=== PATIENT | female | born 2000 | race Caucasian/White ===

== ENCOUNTER 2022-06-19 18:08 | Emergency (ER) | payer BC, SELFPAY ==
[2022-06-19] VITALS (14 sets, daily range): BP systolic 99–113; BP diastolic 64–83; PULSE 67–96; RESP 15–20; TEMP 36.4; O2SAT 95–99
[2022-06-19 18:47] LABS: Basophils Absolute Auto 0.1 K/mm3 (0.0-0.1); Eosinophils Absolute Auto 0.1 K/mm3 (0-0.3); Hematocrit 45.6 % (37.0-47.0); Hemoglobin 15.8 g/dL (12.0-15.0); Immature Granulocyte Absolute 0.02 K/mm3 (0.00-0.031); Immature Granulocyte Percent A 0.2 % (0-0.5); Lymphocytes Absolute Auto 1.89 K/mm3 (0.9-3.2); Lymphocytes Percent Auto 22.9 % (18.3-44.2); Mean Corpuscular HGB Conc 34.6 g/dl (32-36); Mean Corpuscular Hemoglobin 29.8 pg (26-34); Mean Corpuscular Volume 85.9 fl (80-100); Mean Platelet Volume 9.1 fl (7.4-10.4); Monocytes Absolute Auto 0.5 K/mm3 (0.1-0.6); Monocytes Percent Auto 5.4 % (2.6-8.5); Neutrophils Absolute Auto 5.8 K/mm3 (1.3-6.7); Neutrophils Percent Auto 69.5 % (45.5-73.1); Platelet Count Result 361 k/mm3 (150-375); Red Blood Count 5.31 M/mm3 (4.2-5.4); Red Cell Distribution Width 12.4 % (11.5-14.5); White Blood Count 8.3 K/mm3 (4.5-10.0)
[2022-06-19 19:01] LABS: Alanine Aminotransferase 21 U/L (6-35); Albumin Level 5.4 g/dL (3.5-5.1); Alkaline Phosphatase 83 U/L (38-126); Anion Gap 14 mmol/L (8-16); Aspartate Amino Transferase 35 U/L (14-36); Bilirubin,Total 0.3 mg/dL (0.2-1.3); Blood Urea Nitrogen 28 mg/dL (7-17); Calcium 9.5 mg/dL (8.4-10.2); Carbon Dioxide 29 mmol/L (22-30); Chloride 97 mmol/L (98-107); Estimated CRCL calculation 88 ml/min; Estimated Glomerular Filt Rate > 60; Glucose 100 mg/dL (65-110); Lipase 125 U/L (23-300); Potassium 4.5 mmol/L (3.4-5.0); Sodium 140 mmol/L (137-145)
--- NOTE | 2022-06-19 20:16 | PC.NURSE ---
Pt resting upright in stretcher with parent at bedside. Vitals stable at this time.
[2022-06-19 20:31] LABS: Appearance Urine Clear (Clear); Bilirubin Urine Negative (Negative); Blood Urine Negative (Negative); Color Urine Yellow (Yellow); Glucose Urine UA Negative (Negative); Ketones Urine Negative (Negative); Leukocyte Esterase Ur Negative LEU/UL (Negative); Nitrate Urine Negative (Negative); Protein Urine 2+ mg/dL (Negative); Urobilinogen Urine 0.2 mg/dL (<2.0); pH Urine 6.5 (5.0-9.0)
[2022-06-19 20:36] LABS: RBC Urine 0-2 /hpf (0-2); Squamous Epithelial Cell Urine Occasional /hpf (Few); WBC Urine 0-3 /hpf
[2022-06-19 20:44] LABS: Add Urine Microscopic? YES
--- NOTE | 2022-06-19 21:05 | ED.ABDPAIN ---
HPI - Abdominal Pain General Chief Complaint: Abdominal Pain Stated Complaint: Abd pain Time Seen by Provider: 06/19/22 20:10 History of Present Illness HPI narrative: Pt is a 21 y/o female, PMHx of IBS and recurrent dyspepsia/bloating presents to ED via POV with C/O recent UTI two weeks ago; for which she completed oral abx and felt her urinary burning has improved however, she continues to have bloating and now, for the past 5 days, she has felt pressure where her ovaries are . She contacted her [facility] but wasn't able to secure an appointment until June. She denies associated fevers but reports WOOTEN, fatigue, malaise, nausea, bloating that worsens with certain foods such as salty or sweet snacks/meals and she has constipation and diarrhea from time to time-ongoing for hours. She denies known sick contacts, no covid exposures. she is not and denies new sexual partners or STI risk. Related Data Allergies Allergy/AdvReac Type Severity Reaction Status Date / Time No Known Allergies Allergy Verified 06/19/22 20:09 Review of Systems Constitutional: Comments: refer to HPI Gastrointestinal: Comments: refer to HPI Exam Const: General: healthy appearing, no acute distress and alert HENMT: Head: normal to inspection General nose exam: Normal external nose present Mouth: Yes Normal oral and palatal mucosa present Eyes: Conjunctivae: conjunctivae normal Pupils: Equal, round and reactive pupils present EOM: EOMs intact bilaterally Neck: Neck: normal visual inspection, no lymphadenopathy and no meningeal signs Chest: Chest palpation & inspection: normal inspection of the chest Resp: Effort & Inspection: normal respiratory effort Auscultation: clear to auscultation bilaterally Cardio: Rate: regular rate Rhythm: regular rhythm GI: GI Palp: Yes Soft to palpation Other: no rebound TTP, no palpable mass, no focal tenderness or suprapubic mass Back/Spine/Pelvis: Other: no CVA TTP Skin: General skin exam: normal color Rashes: no rashes Wounds: no wounds Neuro: General: patient oriented x3, moves all extremities, no meningeal signs, no focal motor deficits and CN's II-XI intact bilaterally Extrem: General: normal to inspection, no clubbing, cyanosis or edema and no pedal edema Psych: Mental Status: mental status grossly normal Affect: normal affect Course Course Emergency Course: Lab work up is unremarkable, all complaints are ongoing for months with exception of pelvic discomfort that has been present for one week, described as pressure, without symptoms concerning acute pathology such as torsion or ectopic . LMP one week ago, may be ovulation related. Plan to add covid testing on, discharging to FU with [facility] as planned and gastroenterology is also encouraged for FU given ongoing GI symptoms. Pt is agreeable with plan. Vital Signs Vital signs: Vital Signs Temperature 36.4 C 06/19/22 18:21 Pulse Rate 78 06/19/22 18:21 Respiratory Rate 20 06/19/22 18:21 Blood Pressure 99/64 L 06/19/22 18:21 Pulse Oximetry 99 06/19/22 18:21 Oxygen Delivery Room Air 06/19/22 18:21 Temperature 36.4 C 06/19/22 18:21 Pulse Rate 79 06/19/22 20:11 Respiratory Rate 18 06/19/22 20:11 Blood Pressure 113/76 06/19/22 20:11 Pulse Oximetry 99 06/19/22 20:11 Oxygen Delivery Room Air 06/19/22 18:21 MDM - Abdominal Pain MDM Narrative Medical decision making narrative: covid test is negative, all other laboratories are unremarkable. Plan to discharge home with GI referral, FU with OBGYN as planned, sooner if possible. Pt is agreeable with plan. Differential Diagnosis Differential diagnosis: Likely abdominal pain and other (IBS, UTI, ovulation, covid, URI) Lab Data Result diagrams: 06/19/22 18:41 06/19/22 18:41 Labs: Lab Results 06/19/22 06/19/22 06/19/22 Range/Units 18:41 18:41 20:04 WBC 8.3 (4.5-10.0) K/mm3 RBC 5.31 (4.2-5.4) M/m
[2022-06-19 21:50] LABS: EDCOVIDSCREEN Negative (Negative)
== END 2022-06-19 22:12 | disposition home or self-care (01) ==
PROVIDERS: Emergency Medicine; Emergency Provider Nurse Practitioner Family
DX: K58.9 Irritable bowel syndrome, unspecified (principal); Z20.822 Contact with and (suspected) exposure to COVID-19
CPT/HCPCS: 36415; 80053; 81001; 81025; 83690; 85025; 87426; 99283; C9803

== ENCOUNTER → 2022-07-17 12:55 | Outpatient (CLI) | payer BC, SELFPAY ==
--- NOTE | ~2022-07-17 | US_ITS ---
EXAMINATION: US pelvic complete w TV DATE: 07/17/2022 13:59 INDICATION: Pelvic pain Comparison:No prior studies for comparison. TECHNIQUE: Multiple transabdominal and endovaginal sonographic images of the pelvis performed. FINDINGS: The uterus measures 5.7 x 2 x 2.5 cm. The endometrial complex measures 4 mm. The right ovary measures 3.7 x 1.6 x 1.6 cm and the left ovary measures 2.4 x 1.4 x 1.2 cm. There ar e small follicles in each ovary. Normal doppler signal in both ovaries. There is no free fluid in the pelvis. There are no abnormal masses seen on either side. IMPRESSION: 1. Unremarkable pelvic ultrasound. Reviewed, dictated and finalized at location A.
== END ==
LOC: EXPGOSHRAD 12:57
PROVIDERS: PCP Emergency Medicine; Visit Provider Emergency Medicine
DX: R10.2 Pelvic and perineal pain (principal)
CPT/HCPCS: 76830; 76856

== ENCOUNTER 2022-08-23 01:12 | Day surgery (SDC) | payer BC, SELFPAY ==
[2022-08-15 14:05] VITALS: BMI 25.3
[2022-08-23 08:00] VITALS: BP 118/69; PULSE 93; RESP 18; TEMP 36.3; O2SAT 99
[2022-08-23] MEDS: LACTATED RINGERS 1,000 ML 150 ML IV CONT (08:22)
--- NOTE | 2022-08-23 08:50 | SUR.PREOP ---
per anesthesia, case delay for 2 hrs due to pt drinking before arrival
--- NOTE | 2022-08-23 09:58 | WPDANESEPPF ---
Anes - Initial Pre Proc Eval Procedure: Operation Date: 08/23/22 09:15 Proposed Procedures p Esophagogastroduodenoscopy & Colonoscopy - Neftali Ponce MD Date/Time: 08/23/22 09:58 Surgeon: Neftali Ponce MD Pre Op Diagnosis: bloating, GERD, IBS, early satiety Patient Data Age: 21 Gender: F Height: 1.63 m Weight: 65.3 kg Last Vital Signs Temp 97.3 F L 08/23/22 08:00 Pulse 93 08/23/22 08:00 Resp 18 08/23/22 08:00 BP 118/69 08/23/22 08:00 Pulse Ox 99 08/23/22 08:00 O2 Del Method Room Air 08/23/22 08:00 Allergies Allergy/AdvReac Type Severity Reaction Status Date / Time DAIRY AdvReac Severe Gastrointestinal Uncoded 08/23/22 07:58 Upset Home Medications Medication Instructions Recorded Confirmed Type escitalopram oxalate 10 mg tablet 10 mg PO DAILY 07/20/22 08/15/22 History (Lexapro) amitriptyline 25 mg tablet 50 mg PO HS 08/15/22 08/15/22 History Patient hx anesthesia problems: none Family hx anesthesia problems: none Results Review: All pre-operative results and documents have been reviewed as part of the pre-operative evaluation. [facility] Social History Social History (Updated 07/20/22 @ 10:26 by Esha aKy MA) Smoking status: Never smoker Alcohol intake: never Substance use: never Substance use type: does not use Living arrangements: with family Gender identity (if verbalized by the patient): Female Spiritual care concerns: No Anes - Eval Final PreProcedure Day of Procedure 08/23/22 09:58 Patient weight: normal Heart: regular rate and rhythm Lungs: clear to auscultation Airway: Mallampati scale class II Neurological: alert and oriented Last oral intake: >/= 8 hours ASA classification: II Emergent: no Anesthetic plan: proceed Anesthesia type and monitoring: general GIVS and standard monitoring Results Review: All pre-operative results and documents have been reviewed as part of the pre-operative evaluation. Informed Consent: The patient's anesthetic plan and its attendant risks and benefits were discussed with the patient/family/POA. Questions were solicited and answers provided to the satisfaction of the patient/family/POA.
--- NOTE | 2022-08-23 10:04 | PM.HPGS ---
History of Present Illness History of Present Illness Consent: Risks, benefits, and alternatives have been discussed and questions answered. Patient agrees to proceed with procedure. Chief complaint: bloating, GERD, IBS, early satiety Narrative: Aubrie Cruz is a 21 year old female with bloating and discomfort after eating, diagnosed with ibs and using amitriptyline which is helping but never had scopes. Father has crohn's. Review of Systems Constitutional: Constitutional: Denies headache(s) and Denies weakness Eyes: Eyes: Denies blurry vision ENT: Reports Normal hearing present, Denies headache(s) and Denies neck pain Cardiovascular: Cardiovascular: Denies chest pain and Denies dyspnea Respiratory: Respiratory: Denies dyspnea Gastrointestinal: Gastrointestinal: Reports no additional gastrointestinal complaints Genitourinary: Genitourinary: Denies dysuria Musculoskeletal: Musculoskeletal: Denies neck pain Integumentary/Breasts: Skin/Breast: Denies dry skin Neurologic: Reports Normal hearing present, Denies headache(s) and Denies weakness Psychiatric: Psychiatric: Denies anxiety Endocrine: Endocrine: Denies change in body appearance Hematologic/Lymphatic: Hematologic/Lymphatic: Denies easy bleeding Allergic/Immunologic: Allergic/Immunologic: Denies urticaria PMFSH Past Medical History Medical History (Updated 08/23/22 @ 10:05 by Neftali Ponce MD) Bloating Social History Social History (Updated 07/20/22 @ 10:26 by Esha Kay MA) Smoking status: Never smoker Alcohol intake: never Substance use: never Substance use type: does not use Living arrangements: with family Gender identity (if verbalized by the patient): Female Spiritual care concerns: No Meds Home Medications and Allergies Home Medications Medication Instructions Recorded Confirmed Type escitalopram oxalate 10 mg tablet 10 mg PO DAILY 07/20/22 08/15/22 History (Lexapro) amitriptyline 25 mg tablet 50 mg PO HS 08/15/22 08/15/22 History Allergies Allergy/AdvReac Type Severity Reaction Status Date / Time DAIRY AdvReac Severe Gastrointestinal Uncoded 08/23/22 07:58 Upset Vital Signs Vital Signs - 24 hr 08/23/22 08:00 Temperature 97.3 F L Pulse Rate 93 Respiratory Rate 18 Blood Pressure 118/69 Pulse Oximetry 99 Oxygen Delivery Room Air Exam Const: General: comfortable and no acute distress HENMT: Face/Nose/Sinus: Normal nares present Eyes: General: appearance normal, both eyes and all related structures Neck: Neck: no JVD Resp: Auscultation: clear to auscultation bilaterally Cardio: Rate: regular rate Rhythm: regular rhythm GI: Inspection: non-distended GI Palp: Yes Soft to palpation Skin: General skin exam: normal color Neuro: General: gait normal Speech: normal speech Extrem: General: normal to inspection Psych: Mental Status: mental status grossly normal Assessment and Plan Assessment and plan (1) Bloating: Code(s): R14.0 - Abdominal distension (gaseous) Status: Acute Assessment and Plan: egd with bx (2) Irritable bowel syndrome: Code(s): K58.9 - Irritable bowel syndrome without diarrhea Status: Inactive Assessment and Plan: colonoscopy
--- NOTE | 2022-08-23 10:23 | SUR.OPER ---
egd stopped at 1018, colonoscopy started at 1023.
[2022-08-23 10:37] VITALS: BP 74/40; PULSE 75; RESP 26; O2SAT 98
[2022-08-23 10:47] VITALS: BP 85/50; PULSE 69; RESP 22; O2SAT 100
[2022-08-23 10:57] VITALS: BP 101/55; PULSE 67; RESP 19; O2SAT 100
== END 2022-08-23 11:07 | disposition home or self-care (01) ==
PROVIDERS: PCP Emergency Medicine; Visit Provider Internal Medicine Gastroenterology
PROC: 0DJ08ZZ Inspection of Upper Intestinal Tract, Via Natural or Artificial Opening Endoscopic (ICD-10-PCS; CPT 43235; principal; 2022-08-23 09:15)
DX: K58.9 Irritable bowel syndrome, unspecified (principal); R14.0 Abdominal distension (gaseous)
CPT/HCPCS: 45378; 43239; 88305; J2704; J7120

== ENCOUNTER 2023-03-21 22:00 | Emergency (ER) | payer OTHER, SELFPAY ==
--- NOTE | ~2023-03-21 | CT_ITS ---
CT of the Abdomen and Pelvis: Indication: Abdominal pain Technique: 2.5 mm axial scans were obtained through the abdomen and pelvis following intravenous adm inistration of 100 cc of Omnipaque 350. Dose reduction technique was used on this scan by utilizing a utomated exposure control and iterative reconstruction technique. The dose-length product (DLP) was 3 26.28 mGy-cm. Findings: Scans through the lung bases are unremarkable. The liver, spleen, pancreas, gallbladder, adrenals and kidneys are within normal limits. No evidence of aortic aneurysm. No lymphadenopathy. No bowel obstruction or bowel wall thickening. There is no evidence to suggest acute appendicitis. Images through the pelvis were performed. Urinary bladder unremarkable. No adnexal mass seen. No asci salina. Impression: No significant abnormalities seen. Reviewed, dictated and finalized at [facility]. Impression: No significant abnormalities seen.
[2023-03-21 22:06] VITALS: BP 126/78; PULSE 88; RESP 18; TEMP 36.4; O2SAT 100
[2023-03-21 22:54] LABS: Basophils Absolute Auto 0.1 K/mm3 (0.0-0.1); Basophils Percent Auto 0.6 % (0.2-1.2); Eosinophils Absolute Auto 0.8 K/mm3 (0-0.3); Eosinophils Percent Auto 9.4 % (0-4.4); Hematocrit 42.9 % (37.0-47.0); Hemoglobin 15.2 g/dL (12.0-15.0); Immature Granulocyte Absolute 0.02 K/mm3 (0.00-0.031); Immature Granulocyte Percent A 0.3 % (0-0.5); Lymphocytes Absolute Auto 1.79 K/mm3 (0.9-3.2); Lymphocytes Percent Auto 22.4 % (18.3-44.2); Mean Corpuscular HGB Conc 35.4 g/dl (32-36); Mean Corpuscular Hemoglobin 29.5 pg (26-34); Mean Corpuscular Volume 83.3 fl (80-100); Mean Platelet Volume 8.8 fl (7.4-10.4); Monocytes Absolute Auto 0.6 K/mm3 (0.1-0.6); Neutrophils Absolute Auto 4.7 K/mm3 (1.3-6.7); Neutrophils Percent Auto 59.3 % (45.5-73.1); Platelet Count Result 298 k/mm3 (150-375); Red Blood Count 5.15 M/mm3 (4.2-5.4); Red Cell Distribution Width 12.1 % (11.5-14.5)
[2023-03-21 22:58] LABS: Appearance Urine Cloudy (Clear); Bacteria Urine Rare /hpf; Bilirubin Urine Negative (Negative); Blood Urine Negative (Negative); Color Urine Yellow (Yellow); Glucose Urine UA Negative (Negative); Ketones Urine Negative (Negative); Leukocyte Esterase Ur 1+ LEU/UL (Negative); Nitrate Urine Negative (Negative); Non Pathogenic Casts 0-2; Protein Urine Negative (Negative); RBC Urine 0-2 /hpf (0-2); Specific Grav Ur 1.014 (1.001-1.035); Squamous Epithelial Cell Urine Occasional /hpf (Few); Urobilinogen Urine 0.2 mg/dL (<2.0); WBC Urine 21-50 /hpf
[2023-03-21 23:01] LABS: Add Urine Microscopic? YES
[2023-03-21 23:06] LABS: Alanine Aminotransferase 20 U/L (6-35); Albumin Level 4.6 g/dL (3.5-5.1); Alkaline Phosphatase 72 U/L (38-126); Anion Gap 6 mmol/L (8-16); Aspartate Amino Transferase 30 U/L (14-36); Bilirubin,Total 0.5 mg/dL (0.2-1.3); Blood Urea Nitrogen 13 mg/dL (7-17); Carbon Dioxide 29 mmol/L (22-30); Chloride 100 mmol/L (98-107); Estimated CRCL calculation 134 ml/min; Estimated Glomerular Filt Rate > 60; Glucose 100 mg/dL (65-110); Lipase 97 U/L (23-300); Potassium 3.9 mmol/L (3.4-5.0); Sodium 135 mmol/L (137-145)
--- NOTE | 2023-03-22 00:20 | ED.ABDPAIN ---
HPI - Abdominal Pain General Chief Complaint: Abdominal Pain Stated Complaint: abd pain Time Seen by Provider: 03/21/23 23:38 History of Present Illness HPI narrative: Patient is a 22-year-old female here for evaluation of postprandial abdominal pain x3 weeks. Patient states the pain is present in her epigastric region and occasionally moves to her back. Pain is only there after she eats meals. She has been taking Pepto-Bismol with transient relief of her symptoms. Primary care doctor thought it might be due to ulcers and has her scheduled for upper GI series. She has seen a GI doctor in the past and has had a normal upper and lower endoscopy. Additionally, patient states that she started to develop urinary symptoms today and had a fever of 102 at home yesterday. She is also had a sore throat. She is tolerating her secretions. Related Data Home Medications Medication Instructions Recorded Confirmed escitalopram oxalate 10 mg tablet 10 mg PO DAILY 07/20/22 08/15/22 (Lexapro) Allergies Allergy/AdvReac Type Severity Reaction Status Date / Time DAIRY AdvReac Severe Gastrointestinal Uncoded 10/11/22 16:59 Upset Review of Systems Review of Systems: Gen.: Reports fevers Eyes: Denies eye pain or visual change ENT: Denies congestion Respiratory: Denies shortness of breath or cough CV: Denies chest pain or palpitations GI: Reports abdominal pain and diarrhea reports dysuria. Denies burning, urgency, frequency or hematuria Musculoskeletal: Denies back pain or muscle pain Neuro: Denies numbness, tingling, weakness or focal weakness Skin: Denies rash Except as documented, all other systems reviewed and negative PMFSH Past Medical History Medical History Bloating Social History Social History Smoking status: Never smoker Alcohol intake: never Substance use: never Substance use type: does not use Living arrangements: with family Gender identity (if verbalized by the patient): Female Spiritual care concerns: No Exam Narrative: APPEARANCE: Well appearing, no pain in distress, well-nourished. Head: Normocephalic and atraumatic. EYES: PERRLA/EOMI, conjunctivae clear NOSE: No nasal drainage EARS: External ear normal in appearance THROAT: Oropharynx is clear. Mucous membranes are moist. NECK: Supple. No adenopathy, no masses. RESPIRATORY: Airway patent, respirations nonlabored. Clear to auscultation bilaterally, no rales, rhonchi, wheezing. CARDIOVASCULAR: Regular rate and rhythm without murmurs, rubs, or gallops. ABDOMINAL: There is tenderness to palpation in the right upper quadrant. MUSCULOSKELETAL: Extremities are warm and well-perfused. Moves all extremities well. No edema. NEURO: Normal speech. No focal neurologic deficits. SKIN: Skin is warm and dry. No rashes. PSYCHIATRIC: Normal affect/mood. Course Vital Signs Vital signs: Vital Signs Temperature 97.6 F 03/21/23 22:06 Pulse Rate 88 03/21/23 22:06 Respiratory Rate 18 03/21/23 22:06 Blood Pressure 126/78 03/21/23 22:06 Pulse Oximetry 100 03/21/23 22:06 Oxygen Delivery Room Air 03/21/23 22:06 Temperature 97.6 F 03/21/23 22:06 Pulse Rate 88 03/21/23 22:06 Respiratory Rate 18 03/21/23 22:06 Blood Pressure 126/78 03/21/23 22:06 Pulse Oximetry 100 03/21/23 22:06 Oxygen Delivery Room Air 03/21/23 22:06 MDM - Abdominal Pain MDM Narrative Medical decision making narrative: 22-year-old female here for evaluation of abdominal pain, urinary symptoms, upper respiratory infectious symptoms for the past several days. She is nontoxic in appearance, has very mild tenderness in the right upper quadrant but declines any pain meds here. UA does appear infected. Abdomen pelvis CT with no acute findings. Viral swabs are negative, strep is negative as well. Patient will be sent home wit
[2023-03-22 02:19] LABS: Influenza A QL RT-PCR Negative (Negative); Influenza B QL RT-PCR Negative (Negative); SARS-CoV-2 RNA PCR Negative (Negative); Strep Group A RT-PCR NOT DETECTED (Negative)
[2023-03-22 02:30] VITALS: BP 122/74; PULSE 78; RESP 16; O2SAT 100
== END 2023-03-22 02:31 | disposition home or self-care (01) ==
PROVIDERS: Preventive Medicine Aerospace Medicine; Emergency Provider Physician Assistant; PCP Emergency Medicine
DX: N39.0 Urinary tract infection, site not specified (principal); Z20.822 Contact with and (suspected) exposure to COVID-19
CPT/HCPCS: 36415; 74177; 80053; 81001; 81025; 83690; 85025; 87077; 87086; 87088; 87636; 87651; 99284; Q9967